=== PATIENT | male | born 1935 | race Two or more races ===

== ENCOUNTER 2017-07-17 07:51 | Day surgery (SDC) | payer MEDICARE ==
[2017-07-17 08:25] LABS: BUN 16 mg/dL (7-18)
[2017-07-17 08:28] LABS: LYMPH # 1.9 K/mm3 (0.7-4.5); LYMPH % 25.5 % (10-50)
[2017-07-17 08:33] LABS: GFR (ESTIMATED) 72 ML/MIN (>60)
--- NOTE | 2017-07-17 10:22 | RADIOLOGY REPORT PS360 ---
CARDIAC CATHETERIZATION DATE OF CATHETERIZATION:07/17/2017 9:54 AM PROCEDURES: 1. Left heart catheterization 2. Left ventriculogram 3. Selective coronary angiogram 4. Drug-eluting stent deployment to the mid LAD INDICATION FOR TEST: 1. Coronary artery disease 2. In-stent restenosis 3. Class III angina pectoris Informed consent was obtained prior to the procedure. COMPLICATIONS: None ESTIMATED BLOOD LOSS: Less than 10 ml. TECHNIQUE: One percent lidocaine was used to anesthetize the right groin. The right femoral artery was accessed via the Seldinger technique. A 5-Bruneian sheath was placed in the right femoral artery. A JL 4 JR4 catheter were used for the diagnostic heart catheter. 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 After the diagnostic heart catheter ventriculogram and selective coronary angiogram the 5 Bruneian sheath was exchanged for a 6 Bruneian sheath. 7000 units of heparin was administered intravenously. Patient had artery received is oral P2 Y 12 inhibitor. A JL 4 guide catheter was to intubate the left main artery. The ACT was measured at 312 seconds. A BMW wire was placed into the LAD and a 2.75 x 8 mm resolute [place] stent was deployed at 24 finesse reducing the stenosis to less than 10%. FABRIZIO-3 flow was present before and after the procedure. At the end of the procedure the apparatus was removed the groin is reprepped closure changed sheath was removed good hemostasis was achieved using Perclose device patient transferred to the postop holding area in stable condition ANGIOGRAPHIC RESULTS: 1. The left main artery has a stent in the ostial proximal mid distal segment which extends into the LAD. A stent is widely patent free of in-stent restenosis 2. The left anterior descending artery has an ostial 10% stenosis originating off the left main artery stent. The stent then extends throughout the mid segment. There is a focal 70% mostly concentric in-stent restenotic lesion immediately after a large second family reunification specialist. Remaining LAD is free of disease. 3. The circumflex artery is a nondominant vessel and has an ostial 80% hazy stenosis. This supplies a moderate sized obtuse marginal system 4. The right coronary artery is a dominant vessel and has stents in the ostial proximal mid distal segment. The stents are widely patent with minimal in-stent restenosis 5. The LOUISE ventriculogram reveals normal 65% 6. The left ventricular end-diastolic pressure 15 mmHg IMPRESSION: 1. Severe in-stent restenosis in the mid LAD as described above which is almost certainly the culprit for patient's class III angina recalcitrant to antianginal medications 2. Successful drug-eluting stenting of the mid LAD. Severe disease reduced to less than 10% with 1 drug-eluting stent 3. Persistent stenosis and a nondominant circumflex artery unlikely to be producing angina 4. Normal ejection fraction 5. Mildly elevated LVEDP PLAN: 1. Aspirin Plavix 2. LDL less than 55 3. Cardiac rehabilitation 4. Avoidance of tobacco products 5. Patient might benefit from having a low dose diuretics in order to decrease his EDP
[2017-07-17 15:11] VITALS: BP 124/73
== END 2017-07-17 15:11 | disposition home or self-care (01) ==
LOC: CATHLAB 07:51
PROVIDERS: Internal Medicine
PROC: 4A023N7 Measurement of Cardiac Sampling and Pressure, Left Heart, Percutaneous Approach (ICD-10-PCS; principal; 2017-07-17)
PROC: B2111ZZ Fluoroscopy of Multiple Coronary Arteries using Low Osmolar Contrast (ICD-10-PCS; 2017-07-17)
PROC: B2151ZZ Fluoroscopy of Left Heart using Low Osmolar Contrast (ICD-10-PCS; 2017-07-17)
PROC: 027034Z Dilation of Coronary Artery, One Artery with Drug-eluting Intraluminal Device, Percutaneous Approach (ICD-10-PCS; 2017-07-17)
DX: I25.119 Atherosclerotic heart disease of native coronary artery with unspecified angina pectoris (principal); Z95.5 Presence of coronary angioplasty implant and graft; I11.9 Hypertensive heart disease without heart failure; Z86.73 Personal history of transient ischemic attack (TIA), and cerebral infarction without residual deficits; R06.00 Dyspnea, unspecified; I48.91 Unspecified atrial fibrillation; Z79.01 Long term (current) use of anticoagulants